=== PATIENT | male | born 1990 | race American Indian/Alaskan Native ===

== ENCOUNTER 2018-10-21 09:33 | Emergency (ER) | payer SELFPAY ==
--- NOTE | 2018-10-21 10:21 | Emergency Department Report ---
ED General Adult HPI - General Chief complaint: Adult Asthma Stated complaint: ASTHMA ATTACKS Time Seen by Provider: 10/21/18 10:06 Source: patient Mode of arrival: Ambulatory Limitations: No Limitations - History of Present Illness Initial comments: The patient presents to emergency department with a chief complaint of asthma attacks. Patient states that prior to this month. Not had asthma For 3 years. 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 Patient states that he is using his rescue inhaler multiple times a day which is not the norm. Patient does endorse wear warm clothing but still has issues with asthma attacks. Patient denies chest pain, headache, abdominal pain. -: Sudden Radiation: non-radiation Severity scale (0 -10): 0 Improves with: none Worsens with: none Associated Symptoms: denies other symptoms Treatments Prior to Arrival: none - Related Data Previous Rx's Medication Instructions Recorded Last Taken Type Budesonide/Formoterol Fumarate 10.2 gm IH BID #1 hfa.aer.ad 10/21/18 Unknown Rx [Symbicort 80-4.5 Mcg Inhaler] Allergies Allergy/AdvReac Type Severity Reaction Status Date / Time venom-honey bee Allergy Swelling Verified 10/21/18 09:36 [bee venom (honey bee)] ED Review of Systems ROS: Stated complaint: ASTHMA ATTACKS Other details as noted in HPI Comment: All other systems reviewed and negative Constitutional: denies: chills, fever Eyes: denies: eye pain, eye discharge, vision change ENT: denies: ear pain, throat pain Respiratory: denies: cough, shortness of breath, wheezing Cardiovascular: denies: chest pain, palpitations Endocrine: no symptoms reported Gastrointestinal: denies: abdominal pain, nausea, diarrhea Genitourinary: denies: urgency, dysuria Musculoskeletal: denies: back pain, joint swelling, arthralgia Skin: denies: rash, lesions Neurological: denies: headache, weakness, paresthesias Psychiatric: denies: anxiety, depression Hematological/Lymphatic: denies: easy bleeding, easy bruising ED Past Medical Hx - Past Medical History Hx Arthritis: Yes - Social History Smoking Status: Never Smoker Substance Use Type: None - Medications Home Medications: Home Medications Medication Instructions Recorded Confirmed Last Taken Type Budesonide/Formoterol Fumarate 10.2 gm IH BID #1 hfa.aer.ad 10/21/18 Unknown Rx [Symbicort 80-4.5 Mcg Inhaler] ED Physical Exam - General Limitations: No Limitations General appearance: alert, in no apparent distress - Head Head exam: Present: atraumatic, normocephalic - Eye Eye exam: Present: normal appearance - ENT ENT exam: Present: mucous membranes moist - Neck Neck exam: Present: normal inspection - Respiratory Respiratory exam: Present: normal lung sounds bilaterally, other (mild expiratory wheezing). Absent: respiratory distress - Cardiovascular Cardiovascular Exam: Present: regular rate, normal rhythm. Absent: systolic murmur, diastolic murmur, rubs, gallop - GI/Abdominal GI/Abdominal exam: Present: soft, normal bowel sounds. Absent: distended, tenderness - Rectal Rectal exam: Present: deferred - Extremities Exam Extremities exam: Present: normal inspection - Back Exam Back exam: Present: normal inspection - Neurological Exam Neurological exam: Present: alert, oriented X3, CN II-XII intact. Absent: motor sensory deficit - Psychiatric Psychiatric exam: Present: normal affect, normal mood - Skin Skin exam: Present: warm, dry, intact, normal color. Absent: rash ED Course Vital Signs 10/21/18 09:36 Temperature 97.5 F L Pulse Rate 60 Respiratory 16 Rate Blood Pressure 129/84 O2 Sat by Pulse 100 Oximetry ED Medical Decision Making - Medical Decision Making Discussed the plan of follow up Also discussed correct clothing at work Critical care attestation.: If time is entered above; I have spent that time in minutes in the direct care of this critically ill patient, excluding procedure time. ED Disposition Clinical Impression: Asthma Disposition: DC-01 TO HOME OR SELFCARE Is pt being admited?: No Does the pt Need Aspirin: No Condition: Stable Instructions: Asthma (ED) Additional Instructions: return if worse Prescriptions: Budesonide/Formoterol Fumarate [Symbicort 80-4.5 Mcg Inhaler] 10.2 gm IH BID #1 hfa.[email or web address] Referrals: [facility] [Provider Group] - 3-5 Days [facility] [Provider Group] - 3-5 Days [facility] [Provider Group] - 3-5 Days [facility] [Provider Group] - 3-5 Days [facility] [Provider Group] - 3-5 Days [facility] [Outside] - 3-5 Days ODPEPITO VOGEL MD [Staff Physician] - 3-5 Days Time of Disposition: 10:21
[2018-10-21 10:27] VITALS: BP 126/81
== END 2018-10-21 10:26 | disposition home or self-care (01) ==
LOC: ED 09:33
DX: J45.909 Unspecified asthma, uncomplicated (principal); M19.90 Unspecified osteoarthritis, unspecified site; Z91.030 Bee allergy status
CPT/HCPCS: 99282

== ENCOUNTER 2020-11-02 16:35 | Emergency (ER) | payer BC, OTHER ==
[2020-11-02 16:46] VITALS: BP 130/78
[2020-11-02] MEDS ORDERED: predniSONE 20 MG TAB PO ONE (17:08)
--- NOTE | 2020-11-02 17:35 | Emergency Department Report ---
Minor Respiratory - HPI Chief Complaint: Adult Asthma Stated Complaint: ASTHMA ATTACK Time Seen by Provider: 11/02/20 16:51 Duration: Today Pain Location: Nose Severity: mild Minor Respiratory: Yes Able to Tolerate Fluids, No Rhinorrhea, No Sore Throat, No Ear Pain, No Cough, No Sick Contacts, No Hemoptysis, No Chest Pain, No Shortness of Breath, No Fever Other History: This is a 30-year-old male presents to ED complaining of exacerbation that began earlier today while he was at work. Patient states that he was exposed to secondhand smoke which can aggravated his asthma. Patient usually uses inhaler for his asthma attack. Patient denies any coughing, fever, chills, chest pain, shortness of breath ED Review of Systems ROS: Stated complaint: ASTHMA ATTACK Other details as noted in HPI Comment: All other systems reviewed and negative ED Past Medical Hx - Past Medical History Hx Arthritis: Yes - Surgical History Past Surgical History?: No - Social History Smoking Status: Never Smoker Substance Use Type: None - Medications Home Medications: Home Medications Medication Instructions Recorded Confirmed Last Taken Type Olopatadine HCl [Pataday 0.2%] 1 drop OU QDAY #1 drops 04/16/20 Unknown Rx Tobramycin [Tobrex] 1 drop OD Q4H #1 bottle 04/16/20 Unknown Rx Budesonide/Formoterol Fumarate 10.2 gm IH BID #1 hfa.aer.ad 11/02/20 Unknown Rx [Symbicort 80-4.5 Mcg Inhaler] predniSONE [Deltasone] 40 mg PO QDAY #10 tab 11/02/20 Unknown Rx Minor Respiratory Exam - Exam General: Vital signs noted. No distress. Alert and acting appropriately. HEENT: Yes Moist Mucous Membranes, No Pharyngeal Erythema, No Pharyngeal Exudates, No Rhinorrhea, No Conjuctival Injection, No Frontal Tenderness, No Maxillary Tenderness Ear: Neither TM Bulge, Neither TM Erythema, Neither EAC Pain, Neither EAC Discharge Neck: Yes Supple, No Adenopathy Lungs: Yes Good Air Exchange, No Wheezes (Lungs clear to auscultation bilaterally, no use of accessory muscles), No Ronchi, No Stridor, No Cough, No Labored Respirations, No Retractions, No Use of Accessory Muscles, No Other Abnormal Lung Sounds Heart: Yes Regular, No Murmur Abdomen: Yes Normal Bowel Sounds, No Tenderness, No Peritoneal Signs Skin: No Rash, No Edema Neurologic: Alert and oriented, no deficits. Musculoskeletal: Unremarkable. ED Course Vital Signs 11/02/20 16:46 Temperature 98.0 F Pulse Rate 72 Respiratory 16 Rate Blood Pressure 130/78 O2 Sat by Pulse 99 Oximetry ED Medical Decision Making - Medical Decision Making 30-year-old male presents with asthma exacerbation (Mild) ED course: Patient received a prednisone in the ED. Patient had no respiratory distress in the ED. Post evaluation: No wheezing heard, no use of accessory muscles, I discussed with the patient to follow up with her primary care physician. I discussed with the patient will be going home on with albuterol inhaler as well as nebulizer Vital signs are normalized, patient is saturation at 99% on room air. I discussed with the patient is symptoms worsen to return to ED immediately. Critical care attestation.: If time is entered above; I have spent that time in minutes in the direct care of this critically ill patient, excluding procedure time. ED Disposition Clinical Impression: Asthma attack Disposition: DC-01 TO HOME OR SELFCARE Is pt being admited?: No Does the pt Need Aspirin: No Condition: Stable Instructions: Asthma, Adult Additional Instructions: Make sure to follow up with the primary care physician as discussed. Take all your medications as you've been prescribed. If you have any worsening symptoms or develop new symptoms please return to ED immediately. Prescriptions: predniSONE [Deltasone] 40 mg PO QDAY #10 tab Budesonide/Formoterol Fumarate [Symbicort 80-4.5 Mcg Inhaler] 10.2 gm IH BID #1 hfa.[email or web address] Referrals: [facility] [Outside] - 3-5 Days [facility] [Outside] - 3-5 Days Forms: Work/School Release Form(ED) Time of Disposition: 18:36
== END 2020-11-02 19:10 | disposition home or self-care (01) ==
LOC: ED 16:35
DX: J45.909 Unspecified asthma, uncomplicated (principal); M19.91 Primary osteoarthritis, unspecified site; Z79.899 Other long term (current) drug therapy; Z91.030 Bee allergy status
CPT/HCPCS: 99282; J7512

== ENCOUNTER 2021-04-01 14:31 | Emergency (ER) | payer BC ==
[2021-04-01 15:52] VITALS: BP 133/84
--- NOTE | 2021-04-01 16:46 | Emergency Department Report ---
ED Asthma HPI - General Chief Complaint: Adult Asthma Stated Complaint: ASTHMA ATTACK Time Seen by Provider: 04/01/21 16:38 Source: patient Mode of arrival: Ambulatory Limitations: No Limitations - History of Present Illness Initial Comments: Patient is a 30-year-old male presents emergency room complaints of an asthma exacerbation that occurred today while he was at work. 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 He states tobacco smoke typically triggers his asthma. He had associated wheezing and shortness of breath. He states he used his inhalers and now his symptoms have resolved. He denies any cough, fever, nausea, vomiting, diarrhea. no known sick contacts or recent travel. No other past medical history. He states he is a non-smoker. Allergy to bees. Patient states he needs a refill of his inhalers, he states he uses albuterol and Symbi bárbara. - Related Data Previous Rx's Medication Instructions Recorded Last Taken Type Olopatadine HCl [Pataday 0.2%] 1 drop OU QDAY #1 drops 04/16/20 Unknown Rx Tobramycin [Tobrex] 1 drop OD Q4H #1 bottle 04/16/20 Unknown Rx Albuterol Sulfate [Proventil Hfa] 1 puff IH TID PRN #1 hfa.aer.ad 04/01/21 Unknown Rx Budesonide/Formoterol Fumarate 10.2 gm IH BID #1 hfa.aer.ad 04/01/21 Unknown Rx [Symbicort 80-4.5 Mcg Inhaler] predniSONE [Deltasone] 40 mg PO QDAY #10 tab 04/01/21 Unknown Rx Allergies Allergy/AdvReac Type Severity Reaction Status Date / Time venom-honey bee Allergy Swelling Verified 04/01/21 15:48 [bee venom (honey bee)] ED Review of Systems ROS: Stated complaint: ASTHMA ATTACK Other details as noted in HPI Comment: All other systems reviewed and negative ED Past Medical Hx - Past Medical History Hx Arthritis: Yes - Surgical History Past Surgical History?: No - Social History Smoking Status: Never Smoker Substance Use Type: None - Medications Home Medications: Home Medications Medication Instructions Recorded Confirmed Last Taken Type Olopatadine HCl [Pataday 0.2%] 1 drop OU QDAY #1 drops 04/16/20 Unknown Rx Tobramycin [Tobrex] 1 drop OD Q4H #1 bottle 04/16/20 Unknown Rx Albuterol Sulfate [Proventil Hfa] 1 puff IH TID PRN #1 hfa.aer.ad 04/01/21 Unknown Rx Budesonide/Formoterol Fumarate 10.2 gm IH BID #1 hfa.aer.ad 04/01/21 Unknown Rx [Symbicort 80-4.5 Mcg Inhaler] predniSONE [Deltasone] 40 mg PO QDAY #10 tab 04/01/21 Unknown Rx ED Physical Exam - General Limitations: No Limitations General appearance: alert, in no apparent distress - Head Head exam: Present: atraumatic, normocephalic - Eye Eye exam: Present: normal appearance - ENT ENT exam: Present: mucous membranes moist - Respiratory Respiratory exam: Present: normal lung sounds bilaterally. Absent: respiratory distress, wheezes, rales, rhonchi, stridor, chest wall tenderness, accessory muscle use, decreased breath sounds, prolonged expiratory - Cardiovascular Cardiovascular Exam: Present: regular rate, normal rhythm, normal heart sounds. Absent: systolic murmur, diastolic murmur, rubs, gallop - Neurological Exam Neurological exam: Present: alert, oriented X3 - Psychiatric Psychiatric exam: Present: normal affect, normal mood - Skin Skin exam: Present: warm, dry, intact ED Course Vital Signs 04/01/21 15:51 Temperature 98.4 F Pulse Rate 74 Respiratory 16 Rate Blood Pressure 133/84 O2 Sat by Pulse 99 Oximetry ED Medical Decision Making - Medical Decision Making Patient is a 30-year-old male presents emergency room complaints of an asthma exacerbation that occurred today while he was at work. 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 He states tobacco smoke typically triggers his asthma. He had associated wheezing and shortness of breath. He states he used his inhalers and now his symptoms have resolved. He denies any cough, fever, nausea, vomiting, diarrhea. no known sick contacts or recent travel. No other past medical history. He states he is a non-smoker. Allergy to bees. Patient states he needs a refill of his inhalers, he states he uses albuterol and Symbicort. Vitals are normal. Patient's breath sounds are clear bilaterally, no wheezing, no rales, no rhonchi, no respiratory distress, no accessory muscle use, good air movement. Patient has no clinical signs of bacterial pneumonia or bacterial bronchitis. Patient given prescription for medications. Advised patient Please take medication as prescribed. Follow-up with your primary care doctor. Return to emergency room for new or worsening symptoms. avoid your asthma triggers. Critical care attestation.: If time is entered above; I have spent that time in minutes in the direct care of this critically ill patient, excluding procedure time. ED Disposition Clinical Impression: Medication refill Asthma exacerbation Qualifiers: Asthma severity: unspecified severity Asthma persistence: unspecified Qualified Code(s): J45.901 - Unspecified asthma with (acute) exacerbation Disposition: TO HOME OR SELFCARE Is pt being admited?: No Does the pt Need Aspirin: No Condition: Stable Instructions: Asthma, Adult Additional Instructions: Please take medication as prescribed. Follow-up with your primary care doctor. Return to emergency room for new or worsening symptoms. avoid your asthma triggers. Prescriptions: predniSONE [Deltasone] 40 mg PO QDAY #10 tab Albuterol Sulfate [Proventil Hfa] 1 puff IH TID PRN #1 hfa.aer.ad PRN Reason: shortness of breath/wheezing Budesonide/Formoterol Fumarate [Symbicort 80-4.5 Mcg Inhaler] 10.2 gm IH BID #1 hfa.aer.ad Referrals: RONY FANG MD [Staff Physician] - 2-3 Days [facility] [Provider Group] - 2-3 Days Forms: Work/School Release Form(ED) Time of Disposition: 16:44 Print Language: AMERICAN
== END 2021-04-01 17:03 | disposition home or self-care (01) ==
LOC: ED 14:31
DX: J45.901 Unspecified asthma with (acute) exacerbation (principal); M19.90 Unspecified osteoarthritis, unspecified site; Z76.0 Encounter for issue of repeat prescription; Z88.8 Allergy status to other drugs, medicaments and biological substances; Z79.899 Other long term (current) drug therapy
CPT/HCPCS: 99282